=== PATIENT | female | born 2000 | race Caucasian/White ===

== ENCOUNTER 2022-08-27 03:24 | Emergency (ER) | payer OTHER ==
[2022-08-27] MEDS ORDERED: Ketorolac Tromethamine 30 MG/ML VIAL ONE (04:43)
[2022-08-27] MEDS ORDERED: predniSONE 20 MG TAB ONE (04:43)
== END 2022-08-27 05:08 | disposition home or self-care (01) ==
LOC: CSHERS 03:24
DX: S33.5XXA Sprain of ligaments of lumbar spine, initial encounter (principal); S39.012A Strain of muscle, fascia and tendon of lower back, initial encounter; X58.XXXA Exposure to other specified factors, initial encounter
CPT/HCPCS: 96372; 99283; J1885; J7512

== ENCOUNTER 2024-05-25 01:08 | Emergency (ER) | payer OTHER, SELFPAY ==
[2024-05-25] MEDS ORDERED: Acetaminophen 325 MG TAB ONE (01:40)
== END 2024-05-25 03:01 | disposition home or self-care (01) ==
LOC: CSHERS 01:08
DX: O03.9 Complete or unspecified spontaneous abortion without complication (principal); Z3A.08 8 weeks gestation of pregnancy
CPT/HCPCS: 76856